=== PATIENT | male | born 1950 ===

== ENCOUNTER → 2020-11-12 00:56 | Outpatient (CLI) | payer MEDICARE, SELFPAY ==
[2020-11-12 18:52] LABS: SARS-CoV-2 RNA PCR Negative
== END ==
PROVIDERS: PCP Internal Medicine; Visit Provider Internal Medicine Gastroenterology
DX: Z01.812 Encounter for preprocedural laboratory examination (principal); Z20.822 Contact with and (suspected) exposure to COVID-19
CPT/HCPCS: C9803; U0003; U0005

== ENCOUNTER 2020-11-16 02:19 | Day surgery (SDC) | payer MEDICARE, SELFPAY ==
[2020-11-07 14:39] VITALS: BMI 29.7
[2020-11-16 10:09] VITALS: BP 151/107; PULSE 99; RESP 16; TEMP 36.2; O2SAT 100; BMI 28.8
[2020-11-16] MEDS: LACTATED RINGERS 1,000 ML 150 ML IV CONT (10:17)
--- NOTE | 2020-11-16 10:52 | WPDANESEPPF ---
Anes - Initial Pre Proc Eval Procedure: Operation Date: 11/16/20 11:00 Proposed Procedures p Screening Colonoscopy - Marvin Torres MD Date/Time: 11/16/20 10:52 Surgeon: Marvin Torres MD Pre Op Diagnosis: hx colon polyps Patient Data Age: 70 Gender: M Height: 5 ft 8 in Weight: 85.8 kg Last Vital Signs Temp 97.1 F L 11/16/20 10:09 Pulse 99 11/16/20 10:09 Resp 16 11/16/20 10:09 BP 151/107 H 11/16/20 10:09 Pulse Ox 100 11/16/20 10:09 Allergies Allergy/AdvReac Type Severity Reaction Status Date / Time No Known Allergies Allergy Verified 11/16/20 10:08 Home Medications Medication Instructions Recorded Confirmed Type No Home Medications 11/07/20 11/16/20 History Patient hx anesthesia problems: none Family hx anesthesia problems: none PMFSH Past Medical History Medical History (Updated 11/16/20 @ 10:51 by Tex Rosario MD) Healthy adult Family History Family History (Updated 04/05/16 @ 10:18 by DOCTOR UNKNOWN) Father Family history of cardiovascular disease Other Hypertension Social History Social History Smoking status: Never smoker Drinks per week: 30 Alcohol use details: BEER Living arrangements: with family Gender identity (if verbalized by the patient): Male Spiritual care concerns: No Anes - Eval Final PreProcedure Day of Procedure 11/16/20 10:52 Patient weight: normal Heart: regular rate and rhythm Lungs: clear to auscultation Airway: Mallampati scale class II Neurological: alert and oriented Last oral intake: >/= 8 hours ASA classification: II Emergent: no Anesthetic plan: proceed Anesthesia type and monitoring: general GIVS and standard monitoring Informed Consent: The patient's anesthetic plan and its attendant risks and benefits were discussed with the patient/family/POA. Questions were solicited and answers provided to the satisfaction of the patient/family/POA.
--- NOTE | 2020-11-16 11:16 | PM.HPGS ---
History of Present Illness History of Present Illness Consent: Risks, benefits, and alternatives have been discussed and questions answered. Patient agrees to proceed with procedure. Chief complaint: hx colon polyps Narrative: Hussein Vidal is a 70 year old male referred for screening colonoscopy. Review of Systems Review of Systems: All systems reviewed & are unremarkable except as noted in HPI and below PMFSH Past Medical History Medical History Healthy adult Family History Family History Father Family history of cardiovascular disease Other Hypertension Social History Social History Smoking status: Never smoker Drinks per week: 30 Alcohol use details: BEER Living arrangements: with family Gender identity (if verbalized by the patient): Male Spiritual care concerns: No Meds Home Medications and Allergies Home Medications Medication Instructions Recorded Confirmed Type No Home Medications 11/07/20 11/16/20 History Allergies Allergy/AdvReac Type Severity Reaction Status Date / Time No Known Allergies Allergy Verified 11/16/20 10:08 Vital Signs Vital Signs - 24 hr 11/16/20 10:09 Temperature 36.2 C L Pulse Rate 99 Respiratory Rate 16 Blood Pressure 151/107 H Pulse Oximetry 100 Exam Resp: Auscultation: clear to auscultation bilaterally Cardio: Rate: regular rate Rhythm: regular rhythm GI: GI Palp: Yes Soft to palpation and No Tenderness to palpation present (GI) Assessment and Plan Assessment and plan (1) Colon cancer screening: Code(s): Z12.11 - Encounter for screening for malignant neoplasm of colon Status: Acute Assessment and Plan: Colonoscopy with possible biopsy or polypectomy or cautery or injection of substances.
[2020-11-16] MEDS: SIMETHICONE ORAL SUSPENSION 20 MG/0.3 ML 30 ML BOTTLE 0.6 ML IRRIGATION (11:32)
[2020-11-16 11:39] VITALS: BP 116/77; PULSE 89; RESP 25; O2SAT 99
[2020-11-16 11:49] VITALS: BP 113/82; PULSE 85; RESP 25; O2SAT 100
[2020-11-16 11:59] VITALS: BP 136/88; PULSE 74; RESP 20; O2SAT 100
== END 2020-11-16 12:12 | disposition home or self-care (01) ==
PROVIDERS: PCP Internal Medicine; Visit Provider Internal Medicine Gastroenterology
PROC: 0DJD8ZZ Inspection of Lower Intestinal Tract, Via Natural or Artificial Opening Endoscopic (ICD-10-PCS; CPT 45378; principal; 2020-11-16 11:00)
DX: Z12.11 Encounter for screening for malignant neoplasm of colon (principal); K57.30 Diverticulosis of large intestine without perforation or abscess without bleeding; D12.5 Benign neoplasm of sigmoid colon
CPT/HCPCS: 45380; 88305; J2704; J7120

== ENCOUNTER → 2021-02-08 10:45 | Outpatient (CLI) | payer MEDICARE, SELFPAY ==
--- NOTE | ~2021-02-08 | CT_ITS ---
EXAMINATION: CT abdomen pelvis wo/w con DATE: 02/08/2021 11:33 INDICATION: Hematuria TECHNIQUE: Computed tomography (CT) of the abdomen and pelvis was performed without and with 130 cc O mnipaque 350 intravenous contrast. The dose-length product was 1743.68 mGy-cm. Automated exposure con trol and iterative reconstruction technique were employed. COMPARISON: None. FINDINGS: Lung bases are unremarkable. Heart size normal. No significant pleural or pericardial effus ion. Calcified granuloma right lower lobe. There is lingular atelectasis/scarring. 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 There are right renal cysts. No renal stones or hydr onephrosis. Small fat-containing umbilical hernia. There is bladder wall thickening. Fatty infiltration of the liver. Calcified granulomas of the spleen. The pancreas, adrenal glands and left kidney are unremarkable. Ureters are normal in course and caliber. No focal bladder wall masses are identified. There are bilateral hydroceles. Nonobstructive bowel gas pattern. There is diffuse a therosclerosis of the aorta without aneurysm. No significant lymphadenopathy. No free air or free flu id. IMPRESSION: 1. Diffuse bladder wall thickening which may be caused by bowel obstruction from enlarged prostate gl and or cystitis. 2: Small fat-containing umbilical hernia. 3: Bilateral hydroceles. Reviewed, dictated and finalized at location A. IMPRESSION: 1. Diffuse bladder wall thickening which may be caused by bowel obstruction fro m enlarged prostate gland or cystitis. 2: Small fat-containing umbilical hernia. 3: Bilateral hydroceles.
[2021-02-08 11:08] LABS: Estimated Glomerular Filt Rate > 60
== END ==
PROVIDERS: PCP Internal Medicine; Visit Provider Internal Medicine
DX: R31.9 Hematuria, unspecified (principal); N43.3 Hydrocele, unspecified; K42.9 Umbilical hernia without obstruction or gangrene
CPT/HCPCS: 74178; Q9967